=== PATIENT | female | born 1970 | race African-American/Black ===

== ENCOUNTER 2017-03-24 10:14 | Emergency (ER) | payer OTHER, BC | END 2017-03-24 11:10 | disposition home or self-care (01) | LOC: ER 10:14 | DX: S46.911A Strain of unspecified muscle, fascia and tendon at shoulder and upper arm level, right arm, initial encounter (principal); V29.60XA Unspecified motorcycle rider injured in collision with unspecified motor vehicles in traffic accident, initial encounter | CPT/HCPCS: 73030-RT; 99284; A9270-GY ==